=== PATIENT | female | born 1995 | race Caucasian/White ===

== ENCOUNTER 2019-08-20 17:03 | Emergency (ER) | payer OTHER | END 2019-08-20 17:46 | disposition home or self-care (01) | LOC: MADERS 17:03 | DX: O99.513 Diseases of the respiratory system complicating pregnancy, third trimester (principal); J02.9 Acute pharyngitis, unspecified; Z3A.38 38 weeks gestation of pregnancy | CPT/HCPCS: 99281 ==

== ENCOUNTER 2021-01-26 08:14 | Emergency (ER) | payer OTHER ==
[2021-01-26 09:57] LABS: SARS-CoV-2 NAA Rapid Test DETECTED (NotDetected)
== END 2021-01-26 09:17 | disposition home or self-care (01) ==
LOC: MADERS 08:14
DX: U07.1 COVID-19 (principal)
CPT/HCPCS: 0240U; 99283

== ENCOUNTER 2021-08-21 21:35 | Emergency (ER) | payer BC, OTHER ==
[2021-08-22] MEDS ORDERED: Dicyclomine 10 MG CAP ONE ×2 (00:08→00:09)
== END 2021-08-22 00:15 | disposition home or self-care (01) ==
LOC: MADERS 21:35
DX: K59.00 Constipation, unspecified (principal); E66.9 Obesity, unspecified
CPT/HCPCS: 74022

== ENCOUNTER 2021-09-01 03:23 | Outpatient (CLI) | payer BC ==
[2021-09-01 04:32] LABS: SARS-CoV-2 NAA Rapid Test DETECTED (NotDetected)
== END 2021-09-01 03:24 | disposition home or self-care (01) ==
LOC: MADLAB 03:23
PROVIDERS: ATTEND Family Medicine
DX: U07.1 COVID-19 (principal)
CPT/HCPCS: U0002

== ENCOUNTER 2022-02-25 08:56 | Emergency (ER) | payer BC ==
[2022-02-25] MEDS ORDERED: Lactated Ringer's 1,000 ML ONE (09:23)
[2022-02-25] MEDS ORDERED: Sodium Chloride 0.9% 50 ML ONE (09:23)
[2022-02-25] MEDS ORDERED: Famotidine/PF 20 mg/2ml Vial ONE (09:23)
[2022-02-25] MEDS ORDERED: Promethazine HCl 25 MG/ML VIAL ONE (09:23)
[2022-02-25] MEDS ORDERED: Dicyclomine 20 MG/2 ML VIAL ONE (09:23)
[2022-02-25 09:53] LABS: #Basophils 0.1 thou/uL (0.0-0.2); #Eosinphils 0.2 thou/uL (0.0-0.7); #Lymphocytes 2.2 thou/uL (1.20-3.40); #Monocytes 0.4 thou/uL (0.11-0.59); #Neutrophils 6.7 thou/uL (1.40-6.50); %Lymphocytes 22.6 % (21.0-51.0); %Monocytes 4.4 % (0.0-10.0); Hemoglobin 14.5 g/dL (12.0-16.0); Mean Corpuscular HGB CONC 32.9 g/dL (32.0-36.0); Mean Corpuscular Volume 88.3 fL (78.0-98.0); Mean Platelet Volume 8.8 fL (7.4-10.4); Platelet Count 329 thou/uL (130-400); RBC Distribution Width 11.9 % (11.5-14.5); White Blood Cell (WBC) Count 9.5 thou/uL (4.8-10.8)
[2022-02-25] MEDS ORDERED: Diphenoxylate HCl/Atropine Tablet ONE ×2 (09:57→10:09)
[2022-02-25 10:14] LABS: ALT (SGPT) 35 U/L (8-55); AST (SGOT) 20 U/L (5-34); Albumin 4.1 g/dL (3.5-5.0); Alkaline Phosphatase 65 U/L (40-110); Anion Gap 14 mmol/L (10-20); BUN (Urea Nitrogen) 10 mg/dL (7.0-18.7); Bilirubin, Total 0.7 mg/dL (0.2-1.2); Calc. Creatinine Clearance 0 mL/min (70-130); Calcium 9.8 mg/dL (7.8-10.44); Carbon Dioxide 23 mmol/L (22-29); Chloride 105 mmol/L (98-107); Globulin 3.2 g/dL (2.4-3.5); Glucose 88 mg/dL (70-105); Lipase 19 U/L (8-78); Potassium 4.1 mmol/L (3.5-5.1); Protein, Total 7.3 g/dL (6.0-8.3); Sodium 138 mmol/L (136-145)
[2022-02-25 10:37] LABS: BHCG - Serum Negative (NEGATIVE); Pregs Control Background? CLEAR/WHITE (CLR/WHITE); Pregs Control Bar Appear? YES (CONTROL BAR)
[2022-02-25] MEDS ORDERED: Azithromycin 250 MG TAB ONE (10:37)
== END 2022-02-25 11:04 | disposition home or self-care (01) ==
LOC: MADERS 08:56
DX: R11.2 Nausea with vomiting, unspecified (principal); R19.7 Diarrhea, unspecified; R10.13 Epigastric pain; E66.9 Obesity, unspecified
CPT/HCPCS: 80053; 83605; 83690; 83735; 84703; 85025; 94760; 96365; 96372; 96375; J0500; J2550; J7120; S0028

== ENCOUNTER 2023-01-21 09:44 | Outpatient (CLI) | payer BC | END 2023-01-21 09:45 | disposition home or self-care (01) | LOC: MADULT 09:44 | PROVIDERS: ATTEND Family Medicine | DX: R10.30 Lower abdominal pain, unspecified (principal) | CPT/HCPCS: 76770 ==

== ENCOUNTER 2023-02-27 11:47 | Outpatient (CLI) | payer BC | END 2023-02-27 11:48 | disposition home or self-care (01) | LOC: MADRAD 11:47 → MADCT 11:48 | PROVIDERS: ATTEND Family Medicine | DX: R10.9 Unspecified abdominal pain (principal); G89.29 Other chronic pain | CPT/HCPCS: 74176 ==

== ENCOUNTER 2023-03-24 06:55 | Outpatient (CLI) | payer BC ==
[2023-03-24 07:41] LABS: Bilirubin Small (Negative); Blood, Urine Large (Negative); Clarity Cloudy (Clear); Glucose, Urine (Dipstick) Negative (Negative); Ketone, Urine Negative (Negative); Leukocyte Moderate (Negative); Nitrite Negative (Negative); Protein, Urine (Dipstick) 100 mg/dL (Neg-Trace); Urobilinogen 0.2 mg/dL (Less than 2); pH, Urine 5.5 (5.0-9.0)
[2023-03-24 07:44] LABS: Specific Gravity, Urine 1.023 (1.002-1.036)
== END 2023-03-24 06:56 | disposition home or self-care (01) ==
LOC: MADLAB 06:55
PROVIDERS: ATTEND Pathology Anatomic Pathology & Clinical Pathology
DX: Z00.00 Encounter for general adult medical examination without abnormal findings (principal)
CPT/HCPCS: 81003